=== PATIENT | female | born 1980 | race Caucasian/White ===

== ENCOUNTER → 2025-01-25 18:00 | Outpatient (REF) | payer BC, SELFPAY | LOC: WDC 18:00 | PROVIDERS: ATTENDING PHYSICIAN Nurse Practitioner Family | DX: Z12.31 Encounter for screening mammogram for malignant neoplasm of breast (principal) | CPT/HCPCS: 77063; 77067 ==

== ENCOUNTER → 2025-03-05 08:25 | Outpatient (REF) | payer BC, SELFPAY | LOC: RAD 08:25 | PROVIDERS: ATTENDING PHYSICIAN Nurse Practitioner Family; FAMILY PHYSICIAN Family Medicine | DX: Z13.820 Encounter for screening for osteoporosis (principal) | CPT/HCPCS: 77080 ==

== ENCOUNTER 2025-05-07 06:29 | Day surgery (SDC) | payer BC, SELFPAY | END 2025-05-07 14:00 | disposition home or self-care (01) | LOC: GI 06:29 | PROVIDERS: ATTENDING PHYSICIAN Internal Medicine | DX: Z12.11 Encounter for screening for malignant neoplasm of colon (principal); K64.9 Unspecified hemorrhoids; K57.30 Diverticulosis of large intestine without perforation or abscess without bleeding; R13.10 Dysphagia, unspecified; K22.2 Esophageal obstruction; K22.89 Other specified disease of esophagus; T54.91XA Toxic effect of unspecified corrosive substance, accidental (unintentional), initial encounter; T28.7XXA Corrosion of other parts of alimentary tract, initial encounter; D12.0 Benign neoplasm of cecum; K20.0 Eosinophilic esophagitis; Z80.0 Family history of malignant neoplasm of digestive organs | CPT/HCPCS: 43249; 45380; 43239; 88305; 88342 ==